=== PATIENT | female | born 1955 | race Caucasian/White ===

== ENCOUNTER 2018-09-21 05:25 | Inpatient (IN) | payer MEDICAID, OTHER ==
[~2018-09-21] VITALS: Ht 162.6 cm; Wt 51.9 kg
[~2018-09-21 05:25] MED LIST: LISI-167
--- NOTE | 2018-09-21 05:54 | NUR ---
FIRST CONTACT WITH PT. PT C/O INTERMITTANT RIGHT ARM PAIN, STARTED 1 MONTH AGO. STATED NOW HAS SOME NUMBNESS AND TINGLING IN RIGHT ARM AND RIGHT LEG. PT'S AOX4. RESPS EVEN AND UNLABORED. BP/SPO2 MONITORS IN PLACE. EDMD AT BEDSIDE TO ASSESS.
[2018-09-21] MEDS ORDERED: DIAZEPAM 5 MG TABLET PO ONE (06:00)
[2018-09-21] MEDS ORDERED: OXYcodone/APAP 5/325MG TABLET PO ONE (06:00)
[2018-09-21] MEDS ORDERED: HYDROcodone/APAP 5/325 TABLET PO ONE (06:00)
[2018-09-21] MEDS ORDERED: OXYcodone/APAP 5/325MG TABLET ONE (06:01)
[2018-09-21] MEDS ORDERED: DIAZEPAM 5 MG TABLET ONE (06:02)
--- NOTE | 2018-09-21 06:05 | NUR ---
pt medicated per emar. pt tolerated well. pt's aox4. resps even and unlabored.
--- NOTE | 2018-09-21 06:09 | NUR ---
PT'S DAUGHTER(ANNABEL)'S NUMBER [phone]
--- NOTE | 2018-09-21 06:10 | NUR ---
PT IN CT NOW.
--- NOTE | 2018-09-21 06:34 | NUR ---
pt back to room. pt's aox4. resps even and unlabored. pt's daughter at bedside.
--- NOTE | 2018-09-21 06:48 | NUR ---
report given to sanjana hoyt.
[2018-09-21 08:01] LABS: BASOPHILS # (AUTO) 0.03 x10^3/uL (0-0.1); BASOPHILS % (AUTO) 0 % (0-1); EOSINOPHILS # (AUTO) 0.02 x10^3/uL (0-0.4); EOSINOPHILS % (AUTO) 0 % (1-7); LYMPHOCYTES # (AUTO) 2.51 x10^3/uL (1-3.4); LYMPHOCYTES % (AUTO) 22 % (22-44); MD NO; MEAN CORPUSCULAR HEMOGLOBIN 33.3 pg (27.0-34.8); MEAN CORPUSCULAR HGB CONC 34.3 g/dL (32.4-35.8); MEAN CORPUSCULAR VOLUME 97.1 fL (80-100); MEAN PLATELET VOLUME 7.3 fL (7.4-10.4); MONOCYTES # (AUTO) 0.53 x10^3/uL (0.2-0.8); MONOCYTES % (AUTO) 5 % (2-9); NEUTROPHILS # (AUTO) 8.21 x10^3/uL (1.8-6.8); NEUTROPHILS % (AUTO) 73 % (42-75); PLATELET COUNT 243 x10^3/uL (130-400); RED BLOOD COUNT 4.53 x10^6/uL (3.82-5.3); RED CELL DISTRIBUTION WIDTH 13.3 % (9.6-15.2)
[2018-09-21 08:08] LABS: ALBUMIN 3.8 g/dL (3.4-5.0); CALCIUM 8.7 mg/dL (8.5-10.1); CREATININE 0.61 mg/dL (0.55-1.02)
[2018-09-21 08:28] LABS: ANION GAP 8 mmol/L (5-15); CHLORIDE 104 mmol/L (98-107)
[2018-09-21] MEDS ORDERED: MULT-658 PO (09:01)
[2018-09-21] MEDS ORDERED: HEPARIN 25,000 UNITS/500ML PMX 500 ML ONE (09:10)
[2018-09-21] MEDS ORDERED: HEPARIN 5,000 UNITS/ML, 1ML ONE (09:10)
[2018-09-21] MEDS ORDERED: HEPARIN 5,000 UNITS/ML, 1ML IV ONE (09:30)
[2018-09-21] MEDS ORDERED: HEPARIN 25,000 UNITS/500ML PMX 500 ML IV PRN (09:30)
[2018-09-21] MEDS ORDERED: HEPARIN 5,000 UNITS/ML, 1ML IV PRN (09:30)
[2018-09-21] MEDS ORDERED: NITROGLYCERIN 0.4 MG/SPRAY SL PRN (10:30)
[2018-09-21] MEDS ORDERED: DIPHENHYDRAMINE 50 MG/ML, 1ML IVPush ONE (10:30)
[2018-09-21] MEDS ORDERED: ACETAMINOPHEN 650 MG/20.3 ML UDC PO PRN (10:30)
[2018-09-21] MEDS ORDERED: CARVEDILOL 12.5 MG TABLET PO SCH (10:30)
[2018-09-21] MEDS ORDERED: BISACODYL 5 MG EC TABLET PO PRN (10:30)
[2018-09-21] MEDS ORDERED: ASPIRIN 325 MG TABLET EC PO ONE (10:30)
[2018-09-21] MEDS ORDERED: ONDANSETRON 2MG/ML, 2ML IVP PRN (10:30)
[2018-09-21] MEDS ORDERED: ZOLPIDEM 5MG TABLET PO PRN (10:30)
[2018-09-21] MEDS ORDERED: ASPIRIN 325 MG TABLET EC ONE ×2 (10:42→14:50)
[2018-09-21] MEDS ORDERED: CARVEDILOL 3.125 MG TABLET ONE (10:43)
[2018-09-21] MEDS: SODIUM CHLORIDE 0.9% 1,000 ML IV SCH ×4 (10:51→22:56)
[2018-09-21 10:59] LABS: CHOLESTEROL, TOTAL 192 mg/dL (140-239); TRIGLYCERIDES 58 mg/dL (50-200); VLDL CHOLESTEROL 12 mg/dL (0-25)
[2018-09-21 11:02] LABS: HDL CHOL % 34 % (28-40); HDL CHOLESTEROL (DIRECT) 65 mg/dL (40-60); LDL CHOLESTEROL,CALCULATED 115 mg/dL (54-169); LDL/HDL RATIO 1.8 (0.5-3.0)
--- NOTE | 2018-09-21 11:19 | NUR ---
recent lab values show climbing troponin level. dr elena aware. new orders received. dr rodriguez paged at [phone]
--- NOTE | 2018-09-21 11:22 | NUR ---
DR [facility] REPORTED. PLAN IS TO GO TO [facility] SHORTLY. O FURTHER ORDERS AT THIS TIME
--- NOTE | 2018-09-21 12:33 | NUR ---
LATE ENTRY FOR 1220 BREAK RN. RECEIVED BEDSIDE REPORT FROM RONNA SALMERON.
--- NOTE | 2018-09-21 12:35 | NUR ---
PT RESTING ON GURNEY. NO ACUTE DISTRESS NOTED. PT AWAITING ROOM TRANSFER. NO NEEDS REQUESTED AT THIS TIME.
--- NOTE | 2018-09-21 13:00 | NUR ---
BREAK RN: BEDSIDE REPORT TO RONNA SALMERON
[2018-09-21] MEDS ORDERED: LIDOCAINE-MPF 1%, 5ML ONE (13:16)
[2018-09-21] MEDS ORDERED: MIDAZOLAM 1 MG/ML, 2ML ONE (13:16)
[2018-09-21] MEDS ORDERED: FENTANYL PF 100 MCG/2ML ONE (13:16)
[2018-09-21] MEDS ORDERED: VERAPAMIL 2.5 MG/ML, 2ML ONE (13:16)
[2018-09-21] MEDS ORDERED: HEPARIN 1,000 UNITS/ML, 10ML ONE (13:16)
--- NOTE | 2018-09-21 13:17 | NUR ---
COUNTY DIRECTOR RN X2 TO BEDSIDE. TRANSPORTING PT. VSS. PT a&O.
[2018-09-21] MEDS ORDERED: TICAGRELOR 90 MG TABLET ONE (13:53)
[2018-09-21] MEDS ORDERED: BIVALIRUDIN 250 MG ONE (13:53)
[2018-09-21] MEDS ORDERED: BIVALIRUDIN 250 MG in SODIUM CHLORIDE 0.9% 50 ML IV SCH (14:56)
[2018-09-21 15:05] VITALS: BP 131/94
[2018-09-21 15:29] VITALS: BP 125/87
[2018-09-21] MEDS: NITROGLYCERIN 0.4 MG BOTTLE (25 TABS) SL PRN ×2 (15:33→15:42)
[2018-09-21 15:40] VITALS: BP 121/84
[2018-09-21 15:46] VITALS: BP 103/68
[2018-09-21] MEDS: ATORVASTATIN 80 MG TABLET PO SCH (20:41)
[2018-09-21] MEDS: CARVEDILOL 6.25 MG TABLET PO SCH (20:41)
[2018-09-21] MEDS: TICAGRELOR 90 MG TABLET PO SCH (20:41)
[2018-09-21 20:59] VITALS: BP 106/72
[2018-09-21] MEDS: SODIUM CHLORIDE FLUSH 10ML SYR IVF SCH (21:00)
[2018-09-22] MEDS: SODIUM CHLORIDE 0.9% 1,000 ML IV SCH ×6 (02:00→22:56)
[2018-09-22 02:43] VITALS: BP 96/62
[2018-09-22 05:15] LABS: BASOPHILS # (AUTO) 0.02 x10^3/uL (0-0.1); BASOPHILS % (AUTO) 0 % (0-1); EOSINOPHILS # (AUTO) 0.01 x10^3/uL (0-0.4); EOSINOPHILS % (AUTO) 0 % (1-7); LYMPHOCYTES # (AUTO) 1.36 x10^3/uL (1-3.4); LYMPHOCYTES % (AUTO) 15 % (22-44); MD NO; MEAN CORPUSCULAR HEMOGLOBIN 33.8 pg (27.0-34.8); MEAN CORPUSCULAR HGB CONC 34.8 g/dL (32.4-35.8); MEAN PLATELET VOLUME 7.6 fL (7.4-10.4); MONOCYTES # (AUTO) 0.54 x10^3/uL (0.2-0.8); MONOCYTES % (AUTO) 6 % (2-9); NEUTROPHILS # (AUTO) 7.43 x10^3/uL (1.8-6.8); NEUTROPHILS % (AUTO) 79 % (42-75); PLATELET COUNT 222 x10^3/uL (130-400); RED BLOOD COUNT 4.09 x10^6/uL (3.82-5.3)
[2018-09-22 05:17] LABS: ANION GAP 6 mmol/L (5-15); CALCIUM 8.5 mg/dL (8.5-10.1); CHLORIDE 108 mmol/L (98-107); CREATININE 0.55 mg/dL (0.55-1.02)
[2018-09-22 05:22] LABS: HEMOGLOBIN A1C 5.3 % (4.2-6.3)
[2018-09-22] MEDS ORDERED: ASPIRIN 325 MG TABLET EC PO SCH (06:00)
[2018-09-22 08:49] VITALS: BP 93/57
[2018-09-22] MEDS: ASPIRIN 81 MG TABLET EC PO SCH (09:38)
[2018-09-22] MEDS: TICAGRELOR 90 MG TABLET PO SCH ×2 (09:38→20:44)
[2018-09-22] MEDS: SODIUM CHLORIDE FLUSH 10ML SYR IVF SCH ×2 (09:40→20:45)
[2018-09-22] MEDS: CARVEDILOL 6.25 MG TABLET PO SCH (09:40)
[2018-09-22 12:26] VITALS: BP 95/62
[2018-09-22 17:38] VITALS: BP 108/74
[2018-09-22] MEDS: CARVEDILOL 3.125 MG TABLET PO SCH (17:41)
[2018-09-22 19:01] VITALS: BP 96/55
[2018-09-22] MEDS: ATORVASTATIN 80 MG TABLET PO SCH (20:44)
[2018-09-23 00:24] VITALS: BP 96/58
[2018-09-23] MEDS: CARVEDILOL 3.125 MG TABLET PO SCH (06:08)
[2018-09-23 06:18] VITALS: BP_SYST 91; BP_SYST 92; BP_DIAS 57; BP_DIAS 59
[2018-09-23] MEDS: SODIUM CHLORIDE 0.9% 1,000 ML IV SCH ×2 (07:03→08:48)
[2018-09-23 07:35] VITALS: BP_SYST 85; BP_SYST 87; BP_DIAS 49; BP_DIAS 53
[2018-09-23] MEDS ORDERED: CLOP75TA52 PO (08:01)
[2018-09-23] MEDS ORDERED: CARV3.1212 PO (08:01)
[2018-09-23] MEDS ORDERED: ASPI81TA45 PO (08:01)
[2018-09-23] MEDS ORDERED: ATOR-2 PO (08:01)
[2018-09-23] MEDS: ASPIRIN 81 MG TABLET EC PO SCH (08:48)
[2018-09-23] MEDS: TICAGRELOR 90 MG TABLET PO SCH (08:48)
[2018-09-23] MEDS: SODIUM CHLORIDE FLUSH 10ML SYR IVF SCH (08:48)
== END 2018-09-23 12:00 | disposition home or self-care (01) | DRG 247 ==
LOC: ED 06:29 → EDIP 08:56 → 5SO 15:01
PROVIDERS: ADMIT Internal Medicine; ATTEND Internal Medicine
PROC: 027035Z Dilation of Coronary Artery, One Artery with Two Drug-eluting Intraluminal Devices, Percutaneous Approach (ICD-10-PCS; principal; 2018-09-21)
PROC: 4A023N7 Measurement of Cardiac Sampling and Pressure, Left Heart, Percutaneous Approach (ICD-10-PCS; 2018-09-21)
PROC: B2111ZZ Fluoroscopy of Multiple Coronary Arteries using Low Osmolar Contrast (ICD-10-PCS; 2018-09-21)
PROC: B2151ZZ Fluoroscopy of Left Heart using Low Osmolar Contrast (ICD-10-PCS; 2018-09-21)
PROC: 4A033BC Measurement of Arterial Pressure, Coronary, Percutaneous Approach (ICD-10-PCS; 2018-09-21)
DX: I21.4 Non-ST elevation (NSTEMI) myocardial infarction (principal); E78.5 Hyperlipidemia, unspecified; I25.110 Atherosclerotic heart disease of native coronary artery with unstable angina pectoris; F17.210 Nicotine dependence, cigarettes, uncomplicated; I10 Essential (primary) hypertension; J44.9 Chronic obstructive pulmonary disease, unspecified; Z95.5 Presence of coronary angioplasty implant and graft
CPT/HCPCS: 36415; 93458; 93571; C9600; 71045; 72125; 80048; 80061; 82040; 83036; 83880; 84484; 85025; 85520; 93005; 93306; 93880; 96374; 99156; 99157; C1769; C1894; G0378; J0583; J1644; J2250; J2405; J3010; C1725; C1874; C1887; J7030; Q9967

== ENCOUNTER 2019-07-08 12:49 | Outpatient (CLI) | payer MEDICAID ==
[~2019-07-08 12:49] MED LIST changes: +ASPI81TA45 PO; +ATOR-2 PO; +CARV3.1212 PO; +CLOP75TA52 PO; +MULT-658 PO
== END 2019-07-08 23:59 | disposition home or self-care (01) ==
LOC: CARD 12:49
PROVIDERS: ATTEND Internal Medicine Cardiovascular Disease
DX: J44.9 Chronic obstructive pulmonary disease, unspecified (principal); F17.211 Nicotine dependence, cigarettes, in remission
CPT/HCPCS: 94060; 94726; 94729

== ENCOUNTER 2019-10-03 10:58 | Outpatient (CLI) | payer MEDICAID | END 2019-10-03 23:59 | disposition home or self-care (01) | LOC: CFH 10:58 | PROVIDERS: ATTEND Nurse Practitioner Family | DX: J84.10 Pulmonary fibrosis, unspecified (principal); J43.2 Centrilobular emphysema; I70.0 Atherosclerosis of aorta; J98.11 Atelectasis; J98.4 Other disorders of lung; R91.8 Other nonspecific abnormal finding of lung field; R06.00 Dyspnea, unspecified; F17.211 Nicotine dependence, cigarettes, in remission | CPT/HCPCS: 71250 ==

== ENCOUNTER → 2020-04-29 | Outpatient (CLI) | payer MEDICARE | END | disposition home or self-care (01) | LOC: CVU 07:50 | PROVIDERS: ATTEND Internal Medicine Cardiovascular Disease | DX: I73.9 Peripheral vascular disease, unspecified (principal); I10 Essential (primary) hypertension; Z87.891 Personal history of nicotine dependence | CPT/HCPCS: 93922 ==